=== PATIENT | male | born 2000 | race Two or more races ===

== ENCOUNTER 2023-03-04 17:37 | Emergency (ER) | payer OTHER ==
[~2023-03-04] VITALS: Ht 165.1 cm; Wt 90.7 kg
== END 2023-03-04 19:52 | disposition home or self-care (01) ==
LOC: ER 17:37
DX: J03.90 Acute tonsillitis, unspecified (principal)

== ENCOUNTER 2023-09-22 14:14 | Emergency (ER) | payer OTHER ==
[~2023-09-22] VITALS: Ht 172.7 cm; Wt 97.1 kg
[2023-09-22] MEDS ORDERED: GUAIFENESIN/DEXTROMETHORPHAN 100 MG/5 ML ML PO ONE (17:15)
[2023-09-22] MEDS ORDERED: ACETAMINOPHEN 500 MG GEL..CAP PO ONE (17:15)
[2023-09-22] MEDS ORDERED: KETOROLAC TROMETHAMINE 60 MG VIAL IM ONE (17:15)
[2023-09-22 17:35] LABS: HEMATOCRIT 46.1 % (39.0-48.0); HEMOGLOBIN 15.8 g/dL (13-16.00); MEAN CELL VOLUME 87.2 fL (80.0-100.00); MEAN CORPUSCULAR HEMOGLOBIN 29.9 pg (27.00-32.0); MEAN CORPUSCULAR HGB CONC 34.3 g/dl (32.0-36.0); PLATELET COUNT 221 K/uL (150-450); RED BLOOD COUNT 5.28 M/uL (4.00-6.00); RED CELL DISTRIBUTION WIDTH 13.2 % (11.5-14.5)
[2023-09-22] MEDS ORDERED: OSEL75CA PO (18:24)
[2023-09-22] MEDS ORDERED: QC TUSSIN DM L118 ML PO (18:24)
[2023-09-22] MEDS ORDERED: OSELTAMIVIR PHOSPHATE 75 MG CAPSULE PO ONE (18:30)
== END 2023-09-22 18:39 | disposition home or self-care (01) ==
LOC: ER 14:14
PROVIDERS: Nurse Practitioner Family
DX: J10.1 Influenza due to other identified influenza virus with other respiratory manifestations (principal); Z20.822 Contact with and (suspected) exposure to COVID-19